=== PATIENT | female | born 1950 | race Two or more races ===

== ENCOUNTER 2021-10-29 17:51 | Emergency (ER) | payer OTHER ==
[~2021-10-29] VITALS: Ht 149.9 cm; Wt 74.4 kg
[2021-10-29 19:33] LABS: CALCIUM, SERUM 8.3 mg/dL (8.5-10.1); CREATININE 0.8 mg/dL (0.6-1.3); POTASSIUM 4.6 mmol/L (3.5-5.1)
--- NOTE | 2021-10-29 20:00 | NUR ---
BROUGHT IN C/O BILATERAL LOWER EXTREMITY DISCOLORATIONS AND PAIN TO 2ND DIGIT. HAS HAD A HX X3 MONTHS AND WAS ABLE TO CONTROL PAIN WITH PRESCRIBED CREAMS. HOWEVER PAIN AND DISCOLORATION BEGAN AGAIN X4 DAYS. PT AWAKE AND ALERT CHANGED INTO A GOWN AND PLACED ON MONITOR AND V/S STABLE.
[2021-10-29 20:32] LABS: BILIRUBIN,URINE NEGATIVE (NEGATIVE); COLOR,URINE YELLOW (YELLOW); LEUKOCYTE ESTERASE ,URINE TRACE (NEGATIVE); NITRITE, URINE NEGATIVE (NEGATIVE); PROTEIN,URINE NEGATIVE (NEGATIVE); UGLUCOSE NEGATIVE (NEGATIVE)
[2021-10-29 20:58] LABS: BACTERIA,URINE Rare /HPF (None Seen); SQUAMOUS EPITHELIAL CELL,UR Few /HPF (None Seen)
[2021-10-29] MEDS ORDERED: IV NS 0.9% 250 ML IV ONE (21:12)
[2021-10-29] MEDS ORDERED: IOHEXOL-350 100 ML VIAL IV ONE ×2 (21:12→21:16)
[2021-10-29] MEDS ORDERED: IV NS 0.9% 500 ML BAG IV ONE (21:30)
[2021-10-29] MEDS ORDERED: ONDANSETRON HCL/PF 4 MG/2 ML VIAL IVP ONE (21:30)
[2021-10-29] MEDS ORDERED: MORPHINE SULFATE INJ 2 MG/ML DISP.SYRIN IV ONE (21:30)
[2021-10-29 21:36] LABS: BASOPHILS # (AUTO) 0.1 K/uL (0.0-0.2); BASOPHILS % (AUTO) 0.6 % (0.0-2.0); EOSINOPHILS % (AUTO) 0.9 % (0.0-6.0); HEMOGLOBIN 10.9 g/dL (11.5-14.8); LYMPHOCYTES # (AUTO) 1.8 K/uL (0.8-4.8); MONOCYTES # (AUTO) 0.5 K/uL (0.1-1.30); MONOCYTES % (AUTO) 6.4 % (2.0-12.0); NEUTROPHILS % (AUTO) 71.1 % (43.0-81.0); PLATELET COUNT (AUTO) 352 K/uL (150-450); RED BLOOD CELL COUNT(AUTO) 1.27 MIL/uL (4.0-5.2); WHITE BLOOD COUNT (AUTO) 8.5 K/uL (4.3-11.0)
[2021-10-29] MEDS ORDERED: MORPHINE SULFATE INJ 2 MG/ML DISP.SYRIN ONE (22:02)
[2021-10-29] MEDS ORDERED: ONDANSETRON HCL/PF 4 MG/2 ML VIAL ONE (22:02)
[2021-10-29] MEDS ORDERED: NITROGLYCERIN PACKET 1 GM PACKET TOP ONE (22:30)
[2021-10-29] MEDS ORDERED: AMLODIPINE BESYLATE 5 MG TABLET PO ONE (22:30)
[2021-10-29] MEDS ORDERED: AMLODIPINE BESYLATE 5 MG TABLET ONE (22:39)
[2021-10-29] MEDS ORDERED: NITROGLYCERIN PACKET 1 GM PACKET ONE (22:39)
[2021-10-29 23:20] LABS: EOSINOPHILS % (MANUAL) 3 % (0-4); LYMPHOCYTES % (MANUAL) 16 % (16-48); MONOCYTES % (MANUAL) 1 % (0-11.0); NEUTROPHILS % (MANUAL) 80 (42-76)
[2021-10-30] MEDS ORDERED: MORPHINE SULFATE INJ 4 MG/ML DISP.SYRIN ONE (02:42)
--- NOTE | 2021-10-30 02:43 | NUR ---
kenneth, grand daughter: [phone]
[2021-10-30] MEDS ORDERED: MORPHINE SULFATE INJ 2 MG/ML DISP.SYRIN IV ONE (03:00)
[2021-10-30] MEDS ORDERED: CHLORDIAZEPOXIDE HCL 25 MG CAPSULE PO ONE (03:00)
--- NOTE | 2021-10-30 03:09 | NUR ---
[facility] ROOM 2263-1 [facility] REPORT NUMBER [phone] [facility] ETA 5AM. ACCEPTED BY DR. REY
--- NOTE | 2021-10-30 04:12 | NUR ---
Jigar awan in [facility] - 10/30/21 at 0427 by RONALD report given to kenneth
--- NOTE | 2021-10-30 04:12 | NUR ---
REPORT GIVEN TO MIKE
--- NOTE | 2021-10-30 05:07 | NUR ---
PT PICKED UP BY [facility]. REPORT GIVEN TO [employer]EL[employer] AT BEDSIDE.
[2021-10-30 05:08] VITALS: BP 130/55
== END 2021-10-30 05:09 | disposition short-term general hospital (02) ==
LOC: ER 17:57
DX: I73.00 Raynaud's syndrome without gangrene (principal); D64.9 Anemia, unspecified; E11.51 Type 2 diabetes mellitus with diabetic peripheral angiopathy without gangrene; I70.228 Atherosclerosis of native arteries of extremities with rest pain, other extremity; R00.0 Tachycardia, unspecified; Z20.822 Contact with and (suspected) exposure to COVID-19
CPT/HCPCS: 36415; 73660 ×2; 75635; 80048; 81001; 85007; 85025; 85652; 85730; 86140; 87081; 87086; 87426; 93005; 93925; 96361; 96374; 96375; 96376; 99285; C9803; J2270 ×2; J2405; J7050; Q9967